=== PATIENT | male | born 1990 ===

== ENCOUNTER → 2022-06-21 11:12 | Outpatient (BNVA) | payer OTHER, SELFPAY | PROVIDERS: Visit Provider Physician Assistant | DX: Z13.89 Encounter for screening for other disorder (principal) ==

== ENCOUNTER 2022-07-31 13:57 | Outpatient (REF) | payer OTHER, SELFPAY ==
[2022-08-01 15:00] LABS: H Pylori Breath Test Negative (Negative)
== END 2022-07-31 13:58 | disposition home or self-care (01) ==
LOC: HO.LNP 13:57
PROVIDERS: Visit Provider Physician Assistant
DX: Z01.818 Encounter for other preprocedural examination (principal); E66.01 Morbid (severe) obesity due to excess calories
CPT/HCPCS: 83013; 99202; 99211